=== PATIENT | male | born 1990 | race Caucasian/White ===

== ENCOUNTER 2016-11-19 04:00 | Emergency (ER) | payer BC ==
[~2016-11-19] VITALS: Ht 170.2 cm; Wt 77.1 kg
--- NOTE | 2016-11-19 04:00 | NUR ---
PT BIB [facility], PREBOOK. TAKEN TO OF
[2016-11-19 04:16] VITALS: BP 138/85
--- NOTE | 2016-11-19 04:21 | NUR ---
PT MOVED TO BED 6
--- NOTE | 2016-11-19 04:28 | NUR ---
Dr. Armenta evaluating patient at bedside.
[2016-11-19 04:35] VITALS: BP 138/85
--- NOTE | 2016-11-19 04:35 | NUR ---
Patient discharged with v/s stable. Written and verbal after care instructions given and explained. Patient verbalized understanding. Police with in custody. All questions addressed prior to discharge. Advised to follow up with [employer]D.
== END 2016-11-19 04:35 ==
LOC: MED 04:10
DX: Z04.1 Encounter for examination and observation following transport accident (principal); R03.0 Elevated blood-pressure reading, without diagnosis of hypertension
CPT/HCPCS: 99283